=== PATIENT | male | born 1955 | race Caucasian/White ===

== ENCOUNTER 2019-10-19 23:24 | Inpatient (IN) ==
[2019-10-19] MEDS ORDERED: Isovue-370 500 ML BOTTLE IVP ONE (23:46)
[2019-10-20 00:11] LABS: Basophils # 0.1 K/mcL (0.0-0.2); Basophils % 0.6 %; Eosinophils # 0.4 K/mcL (0.0-0.6); Eosinophils % 3.8 %; Hematocrit 42.2 % (37.5-50.1); Hemoglobin 13.7 g/dL (12.9-16.9); Immature Granulocytes % 1.6 % (0-4); Lymphocytes # 2.2 K/mcL (0.6-4.6); Lymphocytes % 22.3 %; Mean Corpuscular HGB Conc 32.5 g/dL (31.6-35.5); Mean Corpuscular Hemoglobin 30.2 pg (28.0-33.3); Mean Corpuscular Volume 93.2 fL (83.0-100.0); Mean Platelet Volume 10.6 fL (9.4-12.4); Monocytes # 1.1 K/mcL (0.0-1.3); Monocytes % 11.3 %; Platelet Count 184 K/mcL (140-400); Red Blood Count 4.53 M/mcL (4.19-5.50); Red Cell Distribution Width 14.4 % (11.5-14.5); Segmented Neutrophils % 60.4 %; White Blood Count 9.9 K/mcL (4.3-11.1)
[2019-10-20 00:26] LABS: BUN/Creatinine Ratio 17 (6-26); Blood Urea Nitrogen 15 mg/dL (8-23); Calcium 9.3 mg/dL (8.6-10.3); Carbon Dioxide 25 mEq/L (23-29); Chloride 103 mEq/L (98-107); Glucose 112 mg/dL (70-105); Osmolality,Calculated 290 (280-300); Potassium 3.9 mEq/L (3.5-5.1); Sodium 139 mEq/L (136-145); eGFR For African Americans > 60 (> 60); eGFR For Non-African Americans > 60 (> 60)
[2019-10-20 00:27] LABS: Troponin I 0.03 ng/mL (< 0.04)
[2019-10-20] MEDS ORDERED: methylPREDNISolone 125 MG/2 ML VIAL IVP ONE (00:27)
[2019-10-20] MEDS ORDERED: Ipratropium/Albuterol Neb 3 ML IH ONE (00:27)
[2019-10-20 02:24] LABS: Adenovirus Not Detected (Not Detect); Coronavirus 229E Not Detected (Not Detect); Coronavirus HKU1 Not Detected (Not Detect)
[2019-10-20 02:25] LABS: Coronavirus NL63 Not Detected (Not Detect); Coronavirus OC43 Not Detected (Not Detect)
[2019-10-20 02:26] LABS: Bordetella Pertussis Not Detected (Not Detect); Chlamydophila pneumoniae Not Detected (Not Detect); Human Metapneumovirus Not Detected (Not Detect); Human Rhinovirus/Enterovirus DETECTED (Not Detect); Influenza A Subtype 2009 H1 Not Detected (Not Detect); Influenza B Not Detected (Not Detect); Mycoplasma pneumoniae Not Detected (Not Detect); Parainfluenza Virus 1 Not Detected (Not Detect); Parainfluenza Virus 2 Not Detected (Not Detect); Parainfluenza Virus 3 Not Detected (Not Detect); Parainfluenza Virus 4 Not Detected (Not Detect); Respiratory Syncytial Virus Not Detected (Not Detect)
[2019-10-20] MEDS ORDERED: Azithromycin 500 MG in 0.9 % Sodium Chloride 250 ML IVPB ONE (03:12)
[2019-10-20] MEDS ORDERED: cefTRIAXone 1,000 MG in Water for inj. (sterile) 10 ML IVP ONE (03:12)
[2019-10-20] MEDS ORDERED: Acetaminophen 325 MG TABLET PO PRN (03:44)
[2019-10-20] MEDS ORDERED: *HR* Promethazine 25 MG/ML VIAL IVP PRN (03:44)
[2019-10-20] MEDS ORDERED: Naloxone 0.4 MG/ML INJ IVP PRN (03:44)
[2019-10-20] MEDS ORDERED: Benzonatate 100 MG CAPSULE PO PRN (03:57)
[2019-10-20] MEDS ORDERED: Ipratropium/Albuterol Neb 3 ML IH PRN (04:01)
[2019-10-20] MEDS: Ipratropium/Albuterol Neb 3 ML IH SCH ×4 (04:34→21:45)
[2019-10-20] MEDS ORDERED: *HR* Labetalol 20 MG/4 ML SYRINGE IVP PRN (04:45)
[2019-10-20] MEDS: *HR* Heparin 5,000 UNIT/ML VIAL SQ SCH ×2 (05:04→18:09)
[2019-10-20] MEDS ORDERED: Insulin DETEMIR 100 UNIT/ML X5UNITS SQ SCH (09:00)
[2019-10-20] MEDS: Nicotine 21 MG PATCH.TD24 TD SCH (09:36)
[2019-10-20] MEDS: MethylPREDNISolone 40 MG/ML VIAL IVP SCH ×2 (09:37→18:09)
[2019-10-20] MEDS: Insulin LISPRO 300 UNITS/3 ML VIAL SQ SCH ×3 (09:40→18:08)
[2019-10-21] MEDS: MethylPREDNISolone 40 MG/ML VIAL IVP SCH ×2 (02:59→08:55)
[2019-10-21] MEDS ORDERED: Azithromycin 500 MG in 0.9 % Sodium Chloride 250 ML IVPB SCH (03:00)
[2019-10-21] MEDS: Ipratropium/Albuterol Neb 3 ML IH SCH ×3 (03:31→15:29)
[2019-10-21 03:49] LABS: BUN/Creatinine Ratio 26 (6-26); Blood Urea Nitrogen 26 mg/dL (8-23); Calcium 8.9 mg/dL (8.6-10.3); Carbon Dioxide 27 mEq/L (23-29); Chloride 102 mEq/L (98-107); Glucose 175 mg/dL (70-105); Magnesium 1.9 mg/dL (1.6-2.6); Osmolality,Calculated 293 (280-300); Phosphorous 3.7 mg/dL (2.7-4.5); Potassium 4.5 mEq/L (3.5-5.1); Sodium 137 mEq/L (136-145); eGFR For African Americans > 60 (> 60); eGFR For Non-African Americans > 60 (> 60)
[2019-10-21 04:10] LABS: Basophils % 0.1 %; Eosinophils % 0.1 %; Hemoglobin 12.9 g/dL (12.9-16.9); Immature Granulocytes % 1.3 % (0-4); Lymphocytes # 1.3 K/mcL (0.6-4.6); Lymphocytes % 9.3 %; Mean Corpuscular HGB Conc 32.3 g/dL (31.6-35.5); Mean Corpuscular Hemoglobin 30.3 pg (28.0-33.3); Mean Corpuscular Volume 93.9 fL (83.0-100.0); Monocytes # 0.8 K/mcL (0.0-1.3); Monocytes % 5.6 %; Platelet Count 208 K/mcL (140-400); Red Blood Count 4.26 M/mcL (4.19-5.50); Red Cell Distribution Width 14.3 % (11.5-14.5); Segmented Neutrophils % 83.6 %; White Blood Count 14.4 K/mcL (4.3-11.1)
[2019-10-21] MEDS: *HR* Heparin 5,000 UNIT/ML VIAL SQ SCH ×2 (05:57→18:29)
[2019-10-21 06:59] VITALS: BP 140/80
[2019-10-21] MEDS: Nicotine 21 MG PATCH.TD24 TD SCH (08:56)
[2019-10-21] MEDS: Insulin LISPRO 300 UNITS/3 ML VIAL SQ SCH (08:56)
== END 2019-10-21 19:01 | disposition home or self-care (01) | DRG 190 ==
LOC: EMEROOARM 23:24 → 3ANU 23:24 → SUATTDRO 10-20 03:44 → 3ANU 10-20 03:54
PROVIDERS: ADMIT Family Medicine; ATTEND Internal Medicine

== ENCOUNTER 2020-08-06 18:20 | Inpatient (IN) ==
[2020-08-06] MEDS ORDERED: Melatonin 3 MG TABLET PO PRN (23:01)
[2020-08-06] MEDS ORDERED: Naloxone 0.4 MG/ML INJ IVP PRN (23:01)
[2020-08-06] MEDS ORDERED: Ondansetron 4 MG/2 ML VIAL IVP PRN (23:01)
[2020-08-06] MEDS ORDERED: Perflutren Lipid Microsphere 1.3 ML in 0.9 % Sodium Chloride 8.7 ML IVP PRN (23:57)
[2020-08-07] MEDS ORDERED: Ipratropium/Albuterol Neb 3 ML IH SCH
[2020-08-07] MEDS ORDERED: D5% in Water 1,000 ML IVC PRN (00:25)
[2020-08-07] MEDS ORDERED: Dextrose Gel 15 GM/37.5 ML TUBE PO PRN ×2 (00:25)
[2020-08-07] MEDS ORDERED: *HR* Dextrose 50 % in Water (Vial) 50 ML VIAL IVP PRN (00:25)
[2020-08-07 01:03] LABS: Basophils # 0.1 K/mcL (0.0-0.2); Eosinophils # 1.1 K/mcL (0.0-0.6); Eosinophils % 11.7 %; Hematocrit 37.5 % (37.5-50.1); Hemoglobin 12.2 g/dL (12.9-16.9); Immature Granulocytes % 0.5 % (0-4); Lymphocytes % 21.3 %; Mean Corpuscular HGB Conc 32.5 g/dL (31.6-35.5); Mean Corpuscular Hemoglobin 29.5 pg (28.0-33.3); Mean Corpuscular Volume 90.8 fL (83.0-100.0); Mean Platelet Volume 10.7 fL (9.4-12.4); Monocytes # 1.2 K/mcL (0.0-1.3); Monocytes % 12.5 %; Platelet Count 233 K/mcL (140-400); Red Blood Count 4.13 M/mcL (4.19-5.50); White Blood Count 9.4 K/mcL (4.3-11.1)
[2020-08-07 01:16] LABS: BUN/Creatinine Ratio 15 (6-26); Blood Urea Nitrogen 18 mg/dL (8-23); Calcium 7.8 mg/dL (8.6-10.3); Carbon Dioxide 29 mEq/L (23-29); Chloride 103 mEq/L (98-107); Glucose 150 mg/dL (70-105); Osmolality,Calculated 291 (280-300); Potassium 3.7 mEq/L (3.5-5.1); Sodium 138 mEq/L (136-145); eGFR For African Americans > 60 (> 60); eGFR For Non-African Americans > 60 (> 60)
[2020-08-07 01:22] LABS: Troponin I 0.04 ng/mL (< 0.04)
[2020-08-07 01:39] LABS: Prothrombin Time 12.1 Seconds (9.4-12.1)
[2020-08-07] MEDS: Ipratropium/Albuterol Neb 3 ML IH SCH ×4 (03:18→20:50)
[2020-08-07] MEDS: *HR* Heparin 5,000 UNIT/ML VIAL SQ SCH ×2 (05:57→16:53)
[2020-08-07] MEDS: Insulin LISPRO 300 UNITS/3 ML VIAL SUBQ SCH ×3 (08:43→16:59)
[2020-08-07] MEDS: Aspirin Enteric Coated 81 MG Tablet PO SCH (08:46)
[2020-08-07] MEDS: Acetaminophen 325 MG TABLET PO PRN (08:59)
[2020-08-07] MEDS ORDERED: Furosemide 40 MG/4 ML VIAL IVP SCH (09:00)
[2020-08-07] MEDS: Budesonide/Formoterol 160/4.5 1 PUFF INH IH SCH ×2 (09:02→20:50)
[2020-08-07 12:06] LABS: VBG Ionized Calcium 1.02 mmol/L (1.15-1.35)
[2020-08-07] MEDS ORDERED: Fluticasone Propionate Nasal 50 MCG/SPRAY BOTTLE NS PRN (12:06)
[2020-08-07 12:24] LABS: Albumin 2.5 g/dL (3.5-5.7); Bilirubin,Direct 0.1 mg/dL (0.0-0.2); Bilirubin,Indirect 0.3 mg/dL (0.0-1.0); Bilirubin,Total 0.4 mg/dL (0.3-1.0); Globulin 2.4 g/dL (2.4-3.5); Total Protein 4.9 g/dL (6.4-8.9)
[2020-08-07] MEDS ORDERED: Calcium Gluconate 1gm/50mL 1 GM/50 ML BAG IVPB ONE (15:23)
[2020-08-07] MEDS: cilostazoL 100 MG TABLET PO SCH (20:04)
[2020-08-08] MEDS ORDERED: *HR* Metoprolol 5 MG/5 ML VIAL IVP ONE (00:08)
[2020-08-08] MEDS: Ipratropium/Albuterol Neb 3 ML IH SCH ×4 (03:30→22:33)
[2020-08-08 05:16] LABS: Basophils # 0.1 K/mcL (0.0-0.2); Basophils % 0.8 %; Eosinophils # 1.1 K/mcL (0.0-0.6); Eosinophils % 11.8 %; Hematocrit 34.8 % (37.5-50.1); Hemoglobin 11.4 g/dL (12.9-16.9); Immature Granulocytes % 0.5 % (0-4); Lymphocytes # 2.1 K/mcL (0.6-4.6); Lymphocytes % 22.4 %; Mean Corpuscular HGB Conc 32.8 g/dL (31.6-35.5); Mean Corpuscular Hemoglobin 29.5 pg (28.0-33.3); Mean Corpuscular Volume 90.2 fL (83.0-100.0); Mean Platelet Volume 10.6 fL (9.4-12.4); Monocytes # 1.5 K/mcL (0.0-1.3); Monocytes % 15.7 %; Neutrophils # 4.6 K/mcL (1.6-8.9); Platelet Count 220 K/mcL (140-400); Red Blood Count 3.86 M/mcL (4.19-5.50); Segmented Neutrophils % 48.8 %; White Blood Count 9.5 K/mcL (4.3-11.1)
[2020-08-08 05:38] LABS: BUN/Creatinine Ratio 18 (6-26); Blood Urea Nitrogen 17 mg/dL (8-23); Calcium 7.8 mg/dL (8.6-10.3); Carbon Dioxide 28 mEq/L (23-29); Chloride 104 mEq/L (98-107); Glucose 101 mg/dL (70-105); Magnesium 1.9 mg/dL (1.6-2.6); Osmolality,Calculated 288 (280-300); Potassium 3.8 mEq/L (3.5-5.1); Sodium 138 mEq/L (136-145); eGFR For African Americans > 60 (> 60); eGFR For Non-African Americans > 60 (> 60)
[2020-08-08] MEDS: *HR* Heparin 5,000 UNIT/ML VIAL SQ SCH ×2 (06:05→17:15)
[2020-08-08] MEDS: Insulin LISPRO 300 UNITS/3 ML VIAL SUBQ SCH ×3 (08:16→16:46)
[2020-08-08] MEDS: Furosemide 40 MG/4 ML VIAL IVP SCH ×2 (08:17→17:18)
[2020-08-08] MEDS: cilostazoL 100 MG TABLET PO SCH ×2 (08:18→20:21)
[2020-08-08] MEDS: Aspirin Enteric Coated 81 MG Tablet PO SCH (08:18)
[2020-08-08] MEDS: Budesonide/Formoterol 160/4.5 1 PUFF INH IH SCH ×2 (08:28→22:33)
[2020-08-08] MEDS ORDERED: NON-FORMULARY MEDICATION 1 EACH EACH (Fluticasone/Umeclidin/Vilanter [Trelegy Ellipta 100- IH SCH (09:00)
[2020-08-09] MEDS: Ipratropium/Albuterol Neb 3 ML IH SCH ×4 (03:46→21:43)
[2020-08-09] MEDS: *HR* Heparin 5,000 UNIT/ML VIAL SQ SCH ×2 (05:01→16:42)
[2020-08-09 06:26] LABS: Basophils # 0.1 K/mcL (0.0-0.2); Basophils % 0.8 %; Eosinophils # 1.3 K/mcL (0.0-0.6); Eosinophils % 13.3 %; Hematocrit 37.1 % (37.5-50.1); Hemoglobin 12.3 g/dL (12.9-16.9); Immature Granulocytes % 0.7 % (0-4); Lymphocytes # 2.4 K/mcL (0.6-4.6); Lymphocytes % 23.7 %; Mean Corpuscular HGB Conc 33.2 g/dL (31.6-35.5); Mean Corpuscular Hemoglobin 29.8 pg (28.0-33.3); Mean Corpuscular Volume 89.8 fL (83.0-100.0); Mean Platelet Volume 11.1 fL (9.4-12.4); Monocytes # 1.4 K/mcL (0.0-1.3); Monocytes % 13.9 %; Neutrophils # 4.8 K/mcL (1.6-8.9); Platelet Count 236 K/mcL (140-400); Red Blood Count 4.13 M/mcL (4.19-5.50); Red Cell Distribution Width 13.7 % (11.5-14.5); Segmented Neutrophils % 47.6 %
[2020-08-09 06:44] LABS: BUN/Creatinine Ratio 19 (6-26); Blood Urea Nitrogen 20 mg/dL (8-23); Carbon Dioxide 31 mEq/L (23-29); Chloride 101 mEq/L (98-107); Glucose 94 mg/dL (70-105); Magnesium 1.8 mg/dL (1.6-2.6); Osmolality,Calculated 288 (280-300); Potassium 3.8 mEq/L (3.5-5.1); Sodium 138 mEq/L (136-145); eGFR For African Americans > 60 (> 60); eGFR For Non-African Americans > 60 (> 60)
[2020-08-09] MEDS: Insulin LISPRO 300 UNITS/3 ML VIAL SUBQ SCH ×3 (07:32→16:39)
[2020-08-09] MEDS: Furosemide 40 MG/4 ML VIAL IVP SCH ×2 (09:33→16:42)
[2020-08-09] MEDS: Aspirin Enteric Coated 81 MG Tablet PO SCH (09:33)
[2020-08-09] MEDS: cilostazoL 100 MG TABLET PO SCH ×2 (09:33→20:19)
[2020-08-09] MEDS: Budesonide/Formoterol 160/4.5 1 PUFF INH IH SCH ×2 (10:47→21:43)
[2020-08-09] MEDS: Magnesium Oxide 400 MG TABLET PO SCH (13:56)
[2020-08-10] MEDS: Ipratropium/Albuterol Neb 3 ML IH SCH ×4 (04:03→22:31)
[2020-08-10 04:45] LABS: BUN/Creatinine Ratio 22 (6-26); Blood Urea Nitrogen 28 mg/dL (8-23); Calcium 8.3 mg/dL (8.6-10.3); Carbon Dioxide 32 mEq/L (23-29); Chloride 100 mEq/L (98-107); Glucose 104 mg/dL (70-105); Osmolality,Calculated 292 (280-300); Potassium 3.8 mEq/L (3.5-5.1); Sodium 138 mEq/L (136-145); eGFR For African Americans > 60 (> 60); eGFR For Non-African Americans 58 (> 60)
[2020-08-10] MEDS: *HR* Heparin 5,000 UNIT/ML VIAL SQ SCH ×2 (06:12→16:39)
[2020-08-10] MEDS: Insulin LISPRO 300 UNITS/3 ML VIAL SUBQ SCH ×3 (07:42→16:39)
[2020-08-10] MEDS: Aspirin Enteric Coated 81 MG Tablet PO SCH (07:47)
[2020-08-10] MEDS: Magnesium Oxide 400 MG TABLET PO SCH (07:47)
[2020-08-10] MEDS: cilostazoL 100 MG TABLET PO SCH ×2 (07:47→20:38)
[2020-08-10] MEDS: Furosemide 40 MG/4 ML VIAL IVP SCH (07:48)
[2020-08-10] MEDS: predniSONE 20 MG TABLET PO SCH (09:48)
[2020-08-10] MEDS: Budesonide/Formoterol 160/4.5 1 PUFF INH IH SCH ×2 (09:57→22:31)
[2020-08-10] MEDS ORDERED: Furosemide 40 MG/4 ML VIAL IVP SCH (21:00)
[2020-08-11] MEDS: Ipratropium/Albuterol Neb 3 ML IH SCH ×4 (04:11→21:27)
[2020-08-11] MEDS: *HR* Heparin 5,000 UNIT/ML VIAL SQ SCH ×2 (05:09→17:08)
[2020-08-11 05:24] LABS: BUN/Creatinine Ratio 25 (6-26); Blood Urea Nitrogen 29 mg/dL (8-23); Calcium 8.6 mg/dL (8.6-10.3); Carbon Dioxide 32 mEq/L (23-29); Chloride 100 mEq/L (98-107); Glucose 117 mg/dL (70-105); Osmolality,Calculated 297 (280-300); Potassium 3.9 mEq/L (3.5-5.1); Sodium 140 mEq/L (136-145); eGFR For African Americans > 60 (> 60); eGFR For Non-African Americans > 60 (> 60)
[2020-08-11] MEDS: Insulin LISPRO 300 UNITS/3 ML VIAL SUBQ SCH ×3 (07:30→15:47)
[2020-08-11] MEDS: cilostazoL 100 MG TABLET PO SCH ×2 (09:32→22:13)
[2020-08-11] MEDS: predniSONE 20 MG TABLET PO SCH (09:32)
[2020-08-11] MEDS: Aspirin Enteric Coated 81 MG Tablet PO SCH (09:32)
[2020-08-11] MEDS: Magnesium Oxide 400 MG TABLET PO SCH (09:33)
[2020-08-11] MEDS: Furosemide 40 MG/4 ML VIAL IVP SCH ×2 (09:34→22:13)
[2020-08-11] MEDS: Budesonide/Formoterol 160/4.5 1 PUFF INH IH SCH ×2 (10:31→21:27)
[2020-08-12] MEDS: Ipratropium/Albuterol Neb 3 ML IH SCH ×4 (03:48→21:52)
[2020-08-12] MEDS: *HR* Heparin 5,000 UNIT/ML VIAL SQ SCH ×2 (05:21→16:59)
[2020-08-12 06:48] LABS: BUN/Creatinine Ratio 30 (6-26); Blood Urea Nitrogen 33 mg/dL (8-23); Calcium 8.1 mg/dL (8.6-10.3); Carbon Dioxide 35 mEq/L (23-29); Chloride 100 mEq/L (98-107); Glucose 110 mg/dL (70-105); Osmolality,Calculated 294 (280-300); Potassium 3.6 mEq/L (3.5-5.1); Sodium 138 mEq/L (136-145); eGFR For African Americans > 60 (> 60); eGFR For Non-African Americans > 60 (> 60)
[2020-08-12] MEDS: predniSONE 20 MG TABLET PO SCH (10:21)
[2020-08-12] MEDS: Insulin LISPRO 300 UNITS/3 ML VIAL SUBQ SCH ×3 (10:22→17:02)
[2020-08-12] MEDS: Magnesium Oxide 400 MG TABLET PO SCH (10:22)
[2020-08-12] MEDS: Aspirin Enteric Coated 81 MG Tablet PO SCH (10:22)
[2020-08-12] MEDS: cilostazoL 100 MG TABLET PO SCH ×2 (10:22→22:27)
[2020-08-12] MEDS: Furosemide 40 MG/4 ML VIAL IVP SCH (10:23)
[2020-08-12] MEDS: Budesonide/Formoterol 160/4.5 1 PUFF INH IH SCH ×2 (10:53→21:52)
[2020-08-12] MEDS: Furosemide 40 MG TABLET PO SCH ×2 (16:59→22:27)
[2020-08-13] MEDS: Ipratropium/Albuterol Neb 3 ML IH SCH ×2 (04:05→10:43)
[2020-08-13 04:46] LABS: Basophils % 0.2 %; Eosinophils # 0.2 K/mcL (0.0-0.6); Eosinophils % 1.5 %; Hematocrit 35.6 % (37.5-50.1); Hemoglobin 11.9 g/dL (12.9-16.9); Immature Granulocytes % 0.8 % (0-4); Lymphocytes # 2.1 K/mcL (0.6-4.6); Lymphocytes % 16.8 %; Mean Corpuscular HGB Conc 33.4 g/dL (31.6-35.5); Mean Corpuscular Volume 89.7 fL (83.0-100.0); Mean Platelet Volume 10.9 fL (9.4-12.4); Monocytes # 1.4 K/mcL (0.0-1.3); Monocytes % 11.6 %; Neutrophils # 8.5 K/mcL (1.6-8.9); Platelet Count 289 K/mcL (140-400); Red Blood Count 3.97 M/mcL (4.19-5.50); Red Cell Distribution Width 13.3 % (11.5-14.5); Segmented Neutrophils % 69.1 %; White Blood Count 12.3 K/mcL (4.3-11.1)
[2020-08-13 05:23] LABS: BUN/Creatinine Ratio 36 (6-26); Blood Urea Nitrogen 47 mg/dL (8-23); Carbon Dioxide 30 mEq/L (23-29); Chloride 100 mEq/L (98-107); Glucose 111 mg/dL (70-105); Osmolality,Calculated 301 (280-300); Potassium 3.8 mEq/L (3.5-5.1); Sodium 139 mEq/L (136-145); eGFR For African Americans > 60 (> 60); eGFR For Non-African Americans 56 (> 60)
[2020-08-13] MEDS: *HR* Heparin 5,000 UNIT/ML VIAL SQ SCH ×2 (05:23→18:21)
[2020-08-13] MEDS: Insulin LISPRO 300 UNITS/3 ML VIAL SUBQ SCH ×3 (10:01→18:19)
[2020-08-13] MEDS: Aspirin Enteric Coated 81 MG Tablet PO SCH (10:23)
[2020-08-13] MEDS: predniSONE 20 MG TABLET PO SCH (10:23)
[2020-08-13] MEDS: Furosemide 40 MG TABLET PO SCH ×2 (10:23→18:21)
[2020-08-13] MEDS: cilostazoL 100 MG TABLET PO SCH ×2 (10:23→21:50)
[2020-08-13] MEDS: Magnesium Oxide 400 MG TABLET PO SCH (10:23)
[2020-08-13] MEDS: Budesonide/Formoterol 160/4.5 1 PUFF INH IH SCH ×2 (10:43→22:31)
[2020-08-13] MEDS ORDERED: Ipratropium/Albuterol Neb 3 ML IH PRN (11:01)
[2020-08-14] MEDS: *HR* Heparin 5,000 UNIT/ML VIAL SQ SCH ×2 (05:24→19:03)
[2020-08-14] MEDS ORDERED: Regadenoson 0.4 MG/5 ML SYRINGE IVP ONE (06:10)
[2020-08-14] MEDS: Budesonide/Formoterol 160/4.5 1 PUFF INH IH SCH ×2 (09:56→22:27)
[2020-08-14] MEDS: cilostazoL 100 MG TABLET PO SCH ×2 (11:41→20:58)
[2020-08-14] MEDS: Aspirin Enteric Coated 81 MG Tablet PO SCH (11:41)
[2020-08-14] MEDS: predniSONE 20 MG TABLET PO SCH (11:41)
[2020-08-14] MEDS: Magnesium Oxide 400 MG TABLET PO SCH (11:41)
[2020-08-14] MEDS: Furosemide 40 MG TABLET PO SCH ×2 (11:42→19:03)
[2020-08-14] MEDS: Insulin LISPRO 300 UNITS/3 ML VIAL SUBQ SCH ×3 (11:42→19:03)
[2020-08-14] MEDS: Acetaminophen 325 MG TABLET PO PRN (20:58)
[2020-08-15] MEDS: *HR* Heparin 5,000 UNIT/ML VIAL SQ SCH ×2 (06:30→17:20)
[2020-08-15] MEDS: Budesonide/Formoterol 160/4.5 1 PUFF INH IH SCH ×2 (07:30→19:45)
[2020-08-15] MEDS: Insulin LISPRO 300 UNITS/3 ML VIAL SUBQ SCH ×3 (07:48→17:19)
[2020-08-15] MEDS: Magnesium Oxide 400 MG TABLET PO SCH (08:39)
[2020-08-15] MEDS: cilostazoL 100 MG TABLET PO SCH ×2 (08:39→20:22)
[2020-08-15] MEDS: Furosemide 40 MG TABLET PO SCH ×2 (08:39→17:20)
[2020-08-15] MEDS: Aspirin Enteric Coated 81 MG Tablet PO SCH (08:39)
[2020-08-16] MEDS: *HR* Heparin 5,000 UNIT/ML VIAL SQ SCH ×2 (05:34→17:00)
[2020-08-16] MEDS: cilostazoL 100 MG TABLET PO SCH ×2 (07:42→20:39)
[2020-08-16] MEDS: Aspirin Enteric Coated 81 MG Tablet PO SCH (07:42)
[2020-08-16] MEDS: Furosemide 40 MG TABLET PO SCH ×2 (07:42→17:00)
[2020-08-16] MEDS: Magnesium Oxide 400 MG TABLET PO SCH (07:42)
[2020-08-16] MEDS: Insulin LISPRO 300 UNITS/3 ML VIAL SUBQ SCH ×3 (07:43→16:09)
[2020-08-16] MEDS: Budesonide/Formoterol 160/4.5 1 PUFF INH IH SCH ×2 (11:08→22:14)
[2020-08-17] MEDS: *HR* Heparin 5,000 UNIT/ML VIAL SQ SCH ×2 (05:21→17:46)
[2020-08-17] MEDS: Budesonide/Formoterol 160/4.5 1 PUFF INH IH SCH ×2 (07:25→19:56)
[2020-08-17] MEDS: Insulin LISPRO 300 UNITS/3 ML VIAL SUBQ SCH ×3 (07:58→17:41)
[2020-08-17] MEDS: Magnesium Oxide 400 MG TABLET PO SCH (08:04)
[2020-08-17] MEDS: Aspirin Enteric Coated 81 MG Tablet PO SCH (08:04)
[2020-08-17] MEDS: cilostazoL 100 MG TABLET PO SCH ×2 (08:04→20:15)
[2020-08-17] MEDS: Furosemide 40 MG TABLET PO SCH ×2 (08:04→17:46)
[2020-08-17 10:05] LABS: BUN/Creatinine Ratio 28 (6-26); Blood Urea Nitrogen 33 mg/dL (8-23); Calcium 8.8 mg/dL (8.6-10.3); Carbon Dioxide 31 mEq/L (23-29); Chloride 99 mEq/L (98-107); Glucose 154 mg/dL (70-105); Osmolality,Calculated 294 (280-300); Potassium 3.6 mEq/L (3.5-5.1); Sodium 137 mEq/L (136-145); eGFR For African Americans > 60 (> 60); eGFR For Non-African Americans > 60 (> 60)
[2020-08-17 10:34] LABS: Hematocrit 41.7 % (37.5-50.1); Mean Corpuscular HGB Conc 32.4 g/dL (31.6-35.5); Mean Corpuscular Hemoglobin 29.3 pg (28.0-33.3); Mean Corpuscular Volume 90.7 fL (83.0-100.0); Mean Platelet Volume 10.4 fL (9.4-12.4); Platelet Count 308 K/mcL (140-400); Red Cell Distribution Width 13.3 % (11.5-14.5); White Blood Count 12.4 K/mcL (4.3-11.1)
[2020-08-17 10:38] LABS: Hemoglobin 13.5 g/dL (12.9-16.9)
[2020-08-17 11:30] LABS: Eosinophils # 0.7 K/mcL (0.0-0.6); Lymphocytes # 3.2 K/mcL (0.6-4.6); Monocytes # 1.1 K/mcL (0.0-1.3); Neutrophils # 7.1 K/mcL (1.6-8.9); Platelet Estimate Normal (Normal); Reactive Lymphocytes Present (Not Present)
[2020-08-18] MEDS: *HR* Heparin 5,000 UNIT/ML VIAL SQ SCH ×2 (05:34→17:44)
[2020-08-18] MEDS: Budesonide/Formoterol 160/4.5 1 PUFF INH IH SCH ×2 (07:32→20:03)
[2020-08-18] MEDS: Furosemide 40 MG TABLET PO SCH ×2 (08:25→17:44)
[2020-08-18] MEDS: Magnesium Oxide 400 MG TABLET PO SCH (08:25)
[2020-08-18] MEDS: Aspirin Enteric Coated 81 MG Tablet PO SCH (08:25)
[2020-08-18] MEDS: cilostazoL 100 MG TABLET PO SCH ×2 (08:26→20:36)
[2020-08-18] MEDS: Insulin LISPRO 300 UNITS/3 ML VIAL SUBQ SCH ×3 (08:26→17:32)
[2020-08-19] MEDS: *HR* Heparin 5,000 UNIT/ML VIAL SQ SCH ×2 (07:05→18:43)
[2020-08-19] MEDS: Budesonide/Formoterol 160/4.5 1 PUFF INH IH SCH ×2 (07:49→20:35)
[2020-08-19] MEDS: Insulin LISPRO 300 UNITS/3 ML VIAL SUBQ SCH ×3 (08:42→18:37)
[2020-08-19 09:53] LABS: Basophils # 0.1 K/mcL (0.0-0.2); Basophils % 1.1 %; Eosinophils # 0.6 K/mcL (0.0-0.6); Hematocrit 40.3 % (37.5-50.1); Immature Granulocytes % 4.1 % (0-4); Lymphocytes # 2.6 K/mcL (0.6-4.6); Lymphocytes % 22.3 %; Mean Corpuscular HGB Conc 32.3 g/dL (31.6-35.5); Mean Corpuscular Hemoglobin 29.1 pg (28.0-33.3); Mean Corpuscular Volume 90.4 fL (83.0-100.0); Monocytes # 1.2 K/mcL (0.0-1.3); Monocytes % 9.8 %; Neutrophils # 6.8 K/mcL (1.6-8.9); Platelet Count 312 K/mcL (140-400); Red Blood Count 4.46 M/mcL (4.19-5.50); Red Cell Distribution Width 13.5 % (11.5-14.5); Segmented Neutrophils % 57.7 %; White Blood Count 11.8 K/mcL (4.3-11.1)
[2020-08-19] MEDS: cilostazoL 100 MG TABLET PO SCH ×2 (10:01→21:37)
[2020-08-19] MEDS: Furosemide 40 MG TABLET PO SCH (10:01)
[2020-08-19] MEDS: Magnesium Oxide 400 MG TABLET PO SCH (10:01)
[2020-08-19] MEDS: Aspirin Enteric Coated 81 MG Tablet PO SCH (10:02)
[2020-08-19 10:13] LABS: BUN/Creatinine Ratio 27 (6-26); Blood Urea Nitrogen 36 mg/dL (8-23); Calcium 8.5 mg/dL (8.6-10.3); Carbon Dioxide 29 mEq/L (23-29); Chloride 101 mEq/L (98-107); Glucose 210 mg/dL (70-105); Osmolality,Calculated 299 (280-300); Potassium 3.6 mEq/L (3.5-5.1); Sodium 137 mEq/L (136-145); eGFR For African Americans > 60 (> 60); eGFR For Non-African Americans 53 (> 60)
[2020-08-19] MEDS: Furosemide 20 MG TABLET PO SCH (18:43)
[2020-08-20 05:48] LABS: BUN/Creatinine Ratio 29 (6-26); Blood Urea Nitrogen 36 mg/dL (8-23); Calcium 8.3 mg/dL (8.6-10.3); Carbon Dioxide 29 mEq/L (23-29); Chloride 103 mEq/L (98-107); Glucose 103 mg/dL (70-105); Osmolality,Calculated 295 (280-300); Potassium 3.6 mEq/L (3.5-5.1); Sodium 138 mEq/L (136-145); eGFR For African Americans > 60 (> 60); eGFR For Non-African Americans 57 (> 60)
[2020-08-20] MEDS: *HR* Heparin 5,000 UNIT/ML VIAL SQ SCH ×2 (06:32→17:34)
[2020-08-20] MEDS: Budesonide/Formoterol 160/4.5 1 PUFF INH IH SCH ×2 (08:05→20:17)
[2020-08-20] MEDS: Insulin LISPRO 300 UNITS/3 ML VIAL SUBQ SCH ×3 (08:07→17:40)
[2020-08-20] MEDS: Magnesium Oxide 400 MG TABLET PO SCH (09:01)
[2020-08-20] MEDS: Aspirin Enteric Coated 81 MG Tablet PO SCH (09:01)
[2020-08-20] MEDS: cilostazoL 100 MG TABLET PO SCH ×2 (09:01→21:25)
[2020-08-20] MEDS: Furosemide 20 MG TABLET PO SCH ×2 (09:02→17:40)
[2020-08-21] MEDS: *HR* Heparin 5,000 UNIT/ML VIAL SQ SCH (05:50)
[2020-08-21] MEDS: Budesonide/Formoterol 160/4.5 1 PUFF INH IH SCH (07:32)
[2020-08-21] MEDS: Insulin LISPRO 300 UNITS/3 ML VIAL SUBQ SCH ×2 (09:01→12:00)
[2020-08-21] MEDS: Magnesium Oxide 400 MG TABLET PO SCH (09:02)
[2020-08-21] MEDS: Furosemide 20 MG TABLET PO SCH (09:02)
[2020-08-21] MEDS: cilostazoL 100 MG TABLET PO SCH (09:02)
[2020-08-21] MEDS: Aspirin Enteric Coated 81 MG Tablet PO SCH (09:02)
[2020-08-21 11:35] VITALS: BP 170/62
[2020-08-21 13:27] LABS: Adenovirus Not Detected (Not Detect); Bordetella Pertussis Not Detected (Not Detect); Chlamydophila pneumoniae Not Detected (Not Detect); Coronavirus 229E Not Detected (Not Detect); Coronavirus HKU1 Not Detected (Not Detect); Coronavirus NL63 Not Detected (Not Detect); Coronavirus OC43 Not Detected (Not Detect); Human Metapneumovirus Not Detected (Not Detect); Human Rhinovirus/Enterovirus Not Detected (Not Detect); Influenza A Subtype 2009 H1 Not Detected (Not Detect); Influenza B Not Detected (Not Detect); Mycoplasma pneumoniae Not Detected (Not Detect); Parainfluenza Virus 1 Not Detected (Not Detect); Parainfluenza Virus 2 Not Detected (Not Detect); Parainfluenza Virus 3 Not Detected (Not Detect); Parainfluenza Virus 4 Not Detected (Not Detect); Respiratory Syncytial Virus Not Detected (Not Detect); SARS-CoV-2 Not Detected (Not Detect)
== END 2020-08-21 16:41 | disposition other institution (70) | DRG 292 ==
LOC: 3ANU → SUATTDRO 20:20
PROVIDERS: ADMIT Internal Medicine; ATTEND Internal Medicine

== ENCOUNTER 2020-08-24 12:50 | Inpatient (IN) ==
[2020-08-24] MEDS ORDERED: Naloxone 0.4 MG/ML INJ IVP PRN (16:05)
[2020-08-24] MEDS ORDERED: Ondansetron 4 MG/2 ML VIAL IVP PRN (16:05)
[2020-08-24] MEDS ORDERED: *HR* Dextrose 50 % in Water (Vial) 50 ML VIAL IVP PRN (16:09)
[2020-08-24] MEDS ORDERED: Dextrose Gel 15 GM/37.5 ML TUBE PO PRN ×2 (16:09)
[2020-08-24] MEDS ORDERED: D5% in Water 1,000 ML IVC PRN (16:09)
[2020-08-24 16:55] LABS: Calcium 8.5 mg/dL (8.6-10.3); Potassium 3.9 mEq/L (3.5-5.1)
[2020-08-24] MEDS: Insulin LISPRO 300 UNITS/3 ML VIAL SUBQ SCH ×2 (17:16→21:21)
[2020-08-24] MEDS ORDERED: DilTIAZem 50 MG in 0.9 % Sodium Chloride 40 ML IVC SCH (17:45)
[2020-08-24] MEDS: Budesonide/Formoterol 160/4.5 1 PUFF INH IH SCH (20:31)
[2020-08-24] MEDS: cilostazoL 100 MG TABLET PO SCH (21:34)
[2020-08-24] MEDS: Apixaban 5 MG TABLET PO SCH (21:35)
[2020-08-25 06:03] LABS: Basophils # 0.1 K/mcL (0.0-0.2); Basophils % 0.7 %; Eosinophils # 0.6 K/mcL (0.0-0.6); Eosinophils % 4.4 %; Hematocrit 34.9 % (37.5-50.1); Immature Granulocytes % 1.7 % (0-4); Lymphocytes # 2.7 K/mcL (0.6-4.6); Lymphocytes % 19.6 %; Mean Corpuscular HGB Conc 32.4 g/dL (31.6-35.5); Mean Corpuscular Hemoglobin 29.1 pg (28.0-33.3); Mean Corpuscular Volume 89.9 fL (83.0-100.0); Mean Platelet Volume 10.9 fL (9.4-12.4); Monocytes # 2.4 K/mcL (0.0-1.3); Monocytes % 17.4 %; Neutrophils # 7.8 K/mcL (1.6-8.9); Platelet Count 259 K/mcL (140-400); Red Blood Count 3.88 M/mcL (4.19-5.50); Red Cell Distribution Width 13.5 % (11.5-14.5); Segmented Neutrophils % 56.2 %; White Blood Count 13.8 K/mcL (4.3-11.1)
[2020-08-25 06:04] LABS: Hemoglobin 11.3 g/dL (12.9-16.9)
[2020-08-25 06:19] LABS: Calcium 8.5 mg/dL (8.6-10.3); Potassium 3.7 mEq/L (3.5-5.1)
[2020-08-25] MEDS: Insulin LISPRO 300 UNITS/3 ML VIAL SUBQ SCH ×4 (08:28→21:04)
[2020-08-25] MEDS: Metoprolol XL (24 HR) Succ 50 MG TAB.ER.24H PO SCH ×2 (08:34→21:03)
[2020-08-25] MEDS: Apixaban 5 MG TABLET PO SCH ×2 (08:34→21:03)
[2020-08-25] MEDS: cilostazoL 100 MG TABLET PO SCH (08:34)
[2020-08-25] MEDS: Aspirin 81 MG TAB.CHEW PO SCH (08:34)
[2020-08-25] MEDS: Budesonide/Formoterol 160/4.5 1 PUFF INH IH SCH ×2 (09:39→20:33)
[2020-08-25] MEDS: Tiotropium 10 INH DOSE IH SCH (09:40)
[2020-08-25] MEDS: Triamcinolone Acet 0.1% CRM 15 GM TUBE TP SCH ×3 (11:38→21:04)
[2020-08-25] MEDS: Fluticasone Propionate Nasal 50 MCG/SPRAY BOTTLE NS SCH (11:38)
[2020-08-26 06:50] VITALS: BP 130/74
[2020-08-26 07:13] LABS: BUN/Creatinine Ratio 24 (6-26); Blood Urea Nitrogen 29 mg/dL (8-23); Calcium 8.6 mg/dL (8.6-10.3); Carbon Dioxide 28 mEq/L (23-29); Chloride 101 mEq/L (98-107); Glucose 108 mg/dL (70-105); Osmolality,Calculated 286 (280-300); Potassium 3.8 mEq/L (3.5-5.1); Sodium 135 mEq/L (136-145); eGFR For African Americans > 60 (> 60); eGFR For Non-African Americans > 60 (> 60)
[2020-08-26] MEDS: Budesonide/Formoterol 160/4.5 1 PUFF INH IH SCH (07:40)
[2020-08-26] MEDS: Tiotropium 10 INH DOSE IH SCH (07:41)
[2020-08-26] MEDS: Metoprolol XL (24 HR) Succ 50 MG TAB.ER.24H PO SCH (08:12)
[2020-08-26] MEDS: Apixaban 5 MG TABLET PO SCH (08:12)
[2020-08-26] MEDS: Insulin LISPRO 300 UNITS/3 ML VIAL SUBQ SCH (08:13)
[2020-08-26] MEDS: Aspirin 81 MG TAB.CHEW PO SCH (08:13)
[2020-08-26] MEDS: Fluticasone Propionate Nasal 50 MCG/SPRAY BOTTLE NS SCH (08:13)
[2020-08-26] MEDS: Triamcinolone Acet 0.1% CRM 15 GM TUBE TP SCH (08:13)
[2020-08-26] MEDS ORDERED: Isosorbide MONOnitrate (24 HR) 30 MG TAB.ER.24H PO SCH (09:00)
[2020-08-26] MEDS ORDERED: Furosemide 40 MG TABLET PO SCH (09:00)
== END 2020-08-26 11:30 | disposition home or self-care (01) | DRG 309 ==
LOC: 2ANU
PROVIDERS: ADMIT Internal Medicine; ATTEND Internal Medicine

== ENCOUNTER 2021-12-16 16:48 | Inpatient (IN) ==
[2021-12-16 19:09] LABS: Mean Platelet Volume 9.7 fL (9.4-12.4)
[2021-12-16 19:11] LABS: Basophils % 0.3 %; Eosinophils # 0.9 K/mcL (0.0-0.6); Eosinophils % 7.4 %; Hematocrit 18.9 % (37.5-50.1); Immature Granulocytes % 0.6 % (0-4); Lymphocytes # 2.5 K/mcL (0.6-4.6); Lymphocytes % 22.1 %; Mean Corpuscular HGB Conc 30.7 g/dL (31.6-35.5); Mean Corpuscular Hemoglobin 28.4 pg (28.0-33.3); Mean Corpuscular Volume 92.6 fL (83.0-100.0); Monocytes # 1.2 K/mcL (0.0-1.3); Monocytes % 10.7 %; Platelet Count 316 K/mcL (140-400); Red Blood Count 2.04 M/mcL (4.19-5.50); Red Cell Distribution Width 17.5 % (11.5-14.5); Segmented Neutrophils % 58.9 %; White Blood Count 11.5 K/mcL (4.3-11.1)
[2021-12-16 19:23] LABS: INR 1.3; Prothrombin Time 14.5 Seconds (9.4-12.1)
[2021-12-16 19:26] LABS: Activated Partial Thrombo Time 32.2 Seconds (26.0-36.0)
[2021-12-16 19:27] LABS: Neutrophils # 6.8 K/mcL (1.6-8.9)
[2021-12-16 19:29] LABS: Hemoglobin 5.8 g/dL (12.9-16.9)
[2021-12-16 19:30] LABS: Anisocytosis 1+ (Not Present); Hypochromasia Present (Not Present); Microcytosis Present (Not Present); Ovalocytes 1+ (Not Present); Platelet Estimate Normal (Normal); Poikilocytosis 1+ (Not Present); Polychromasia 1+ (Not Present); Stomatocytes 1+ (Not Present)
[2021-12-16 19:38] LABS: Albumin 3.8 g/dL (3.5-5.7); Albumin/Globulin Ratio 1.5 (1.1-2.2); Bilirubin,Direct 0.1 mg/dL (0.0-0.2); Bilirubin,Indirect 0.5 mg/dL (0.0-1.0); Bilirubin,Total 0.6 mg/dL (0.3-1.0); Calcium 9.2 mg/dL (8.6-10.3); Globulin 2.5 g/dL (2.4-3.5); Potassium 4.2 mEq/L (3.5-5.1); Total Protein 6.3 g/dL (6.4-8.9)
[2021-12-16] MEDS: 0.9 % Sodium Chloride 500 ML ONE ×2 (20:50→21:00)
[2021-12-16] MEDS ORDERED: 0.9 % Sodium Chloride 500 ML IV ONE (20:50)
[2021-12-16] MEDS ORDERED: Pantoprazole 80 MG in 0.9 % Sodium Chloride 50 ML IVPB ONE (21:15)
[2021-12-16] MEDS ORDERED: Ondansetron ODT 4 MG TAB.RAPDIS SL PRN (22:35)
[2021-12-16] MEDS ORDERED: Naloxone 0.4 MG/ML INJ IVP PRN (22:35)
[2021-12-16] MEDS ORDERED: Melatonin 3 MG TABLET PO PRN (22:35)
[2021-12-16] MEDS ORDERED: Iopamidol - 370 500 ML MLS IVP ONE (23:29)
[2021-12-17] MEDS ORDERED: 0.9 % Sodium Chloride 250 ML ONE (00:02)
[2021-12-17] MEDS ORDERED: Dextrose Gel 15 GM/37.5 ML TUBE PO PRN ×2 (00:23)
[2021-12-17] MEDS ORDERED: D5% in Water 1,000 ML IVC PRN (00:23)
[2021-12-17] MEDS ORDERED: *HR* Dextrose 50 % in Water (Syg) 50 ML SYRINGE IVP PRN (00:23)
[2021-12-17] MEDS ORDERED: Ipratropium/Albuterol Neb 3 ML IH PRN (00:25)
[2021-12-17] MEDS: Insulin LISPRO 300 UNITS/3 ML VIAL SUBQ SCH ×3 (04:38→18:08)
[2021-12-17 05:09] LABS: Basophils # 0.1 K/mcL (0.0-0.2); Basophils % 0.5 %; Eosinophils # 0.8 K/mcL (0.0-0.6); Eosinophils % 7.3 %; Hematocrit 22.9 % (37.5-50.1); Hemoglobin 7.2 g/dL (12.9-16.9); Immature Granulocytes % 0.6 % (0-4); Lymphocytes # 2.4 K/mcL (0.6-4.6); Lymphocytes % 22.6 %; Mean Corpuscular HGB Conc 31.4 g/dL (31.6-35.5); Mean Corpuscular Hemoglobin 28.1 pg (28.0-33.3); Mean Corpuscular Volume 89.5 fL (83.0-100.0); Mean Platelet Volume 9.5 fL (9.4-12.4); Monocytes # 1.3 K/mcL (0.0-1.3); Monocytes % 12.1 %; Neutrophils # 6.1 K/mcL (1.6-8.9); Platelet Count 281 K/mcL (140-400); Red Blood Count 2.56 M/mcL (4.19-5.50); Red Cell Distribution Width 16.4 % (11.5-14.5); Segmented Neutrophils % 56.9 %; White Blood Count 10.7 K/mcL (4.3-11.1)
[2021-12-17 05:12] LABS: Alanine Aminotransferase 17 Units/L (7-52); Albumin 3.2 g/dL (3.5-5.7); Albumin/Globulin Ratio 1.5 (1.1-2.2); Alkaline Phosphatase 41 Units/L (34-104); Aspartate Amino Transferase 14 Units/L (13-39); BUN/Creatinine Ratio 23 (6-26); Bilirubin,Total 1.8 mg/dL (0.3-1.0); Blood Urea Nitrogen 19 mg/dL (8-23); Calcium 8.5 mg/dL (8.6-10.3); Carbon Dioxide 25 mEq/L (23-29); Chloride 104 mEq/L (98-107); Globulin 2.1 g/dL (2.4-3.5); Glucose 89 mg/dL (70-105); Magnesium 1.8 mg/dL (1.6-2.6); Osmolality,Calculated 286 (280-300); Phosphorous 4.1 mg/dL (2.7-4.5); Potassium 3.9 mEq/L (3.5-5.1); Sodium 137 mEq/L (136-145); Total Protein 5.3 g/dL (6.4-8.9)
[2021-12-17 05:13] LABS: INR 1.3
[2021-12-17] MEDS: Budesonide/Formoterol 160/4.5 1 PUFF INH IH SCH ×2 (07:43→20:22)
[2021-12-17] MEDS: Pantoprazole 40 MG VIAL IVP SCH ×2 (10:18→21:52)
[2021-12-17 10:32] LABS: Hematocrit 23.1 % (37.5-50.1); Hemoglobin 7.4 g/dL (12.9-16.9)
[2021-12-17] MEDS ORDERED: *HR* Propofol 200 MG/20 ML VIAL IVP ONE (11:36)
[2021-12-17] MEDS ORDERED: Lidocaine -MPF 2% 5 ML VIAL ONE (11:36)
[2021-12-17] MEDS: Acetaminophen 325 MG TABLET PO SCH (15:48)
[2021-12-17] MEDS ORDERED: SODIUM CHLORIDE/NAHCO3/KCL/PEG 4,000 ML SOLN.RECON PO ONE (17:00)
[2021-12-18] MEDS: Insulin LISPRO 300 UNITS/3 ML VIAL SUBQ SCH ×4 (01:19→17:51)
[2021-12-18 02:48] LABS: BUN/Creatinine Ratio 19 (6-26); Blood Urea Nitrogen 17 mg/dL (8-23); Calcium 8.5 mg/dL (8.6-10.3); Carbon Dioxide 19 mEq/L (23-29); Chloride 105 mEq/L (98-107); Glucose 94 mg/dL (70-105); Osmolality,Calculated 285 (280-300); Potassium 4.4 mEq/L (3.5-5.1); Sodium 137 mEq/L (136-145)
[2021-12-18 03:59] LABS: Basophils # 0.1 K/mcL (0.0-0.2); Basophils % 0.5 %; Eosinophils # 0.7 K/mcL (0.0-0.6); Eosinophils % 5.9 %; Hemoglobin 7.5 g/dL (12.9-16.9); Immature Granulocytes % 0.4 % (0-4); Lymphocytes # 1.9 K/mcL (0.6-4.6); Lymphocytes % 16.8 %; Mean Corpuscular HGB Conc 31.3 g/dL (31.6-35.5); Mean Corpuscular Hemoglobin 28.5 pg (28.0-33.3); Mean Corpuscular Volume 91.3 fL (83.0-100.0); Mean Platelet Volume 9.6 fL (9.4-12.4); Monocytes # 1.4 K/mcL (0.0-1.3); Monocytes % 12.2 %; Neutrophils # 7.1 K/mcL (1.6-8.9); Platelet Count 289 K/mcL (140-400); Red Blood Count 2.63 M/mcL (4.19-5.50); Red Cell Distribution Width 16.7 % (11.5-14.5); Segmented Neutrophils % 64.2 %; White Blood Count 11.1 K/mcL (4.3-11.1)
[2021-12-18] MEDS: Acetaminophen 325 MG TABLET PO SCH ×2 (04:19→15:34)
[2021-12-18] MEDS ORDERED: Lidocaine -MPF 2% 5 ML VIAL ONE (08:26)
[2021-12-18] MEDS ORDERED: NON-FORMULARY MEDICATION 1 EACH EACH (Fluticasone/Umeclidin/Vilanter [Trelegy Ellipta 100- IH SCH (09:00)
[2021-12-18] MEDS: Budesonide/Formoterol 160/4.5 1 PUFF INH IH SCH ×2 (09:39→19:48)
[2021-12-18] MEDS: Tiotropium 10 INH DOSE IH SCH (09:40)
[2021-12-18] MEDS: Furosemide 40 MG TABLET PO SCH (10:09)
[2021-12-18] MEDS: Pantoprazole 40 MG VIAL IVP SCH ×2 (10:09→20:12)
[2021-12-18] MEDS: Loratadine 10 MG TABLET PO SCH (10:09)
[2021-12-18 14:31] LABS: Hematocrit 24.8 % (37.5-50.1); Hemoglobin 7.8 g/dL (12.9-16.9)
[2021-12-18] MEDS ORDERED: SODIUM CHLORIDE/NAHCO3/KCL/PEG 4,000 ML SOLN.RECON PO ONE (19:18)
[2021-12-19] MEDS: Insulin LISPRO 300 UNITS/3 ML VIAL SUBQ SCH ×4 (00:26→17:09)
[2021-12-19] MEDS: Acetaminophen 325 MG TABLET PO SCH ×2 (00:26→17:09)
[2021-12-19 05:53] LABS: Basophils % 0.3 %; Eosinophils # 0.6 K/mcL (0.0-0.6); Eosinophils % 5.3 %; Hematocrit 25.5 % (37.5-50.1); Immature Granulocytes % 0.4 % (0-4); Lymphocytes # 1.8 K/mcL (0.6-4.6); Lymphocytes % 17.2 %; Mean Corpuscular HGB Conc 31.4 g/dL (31.6-35.5); Mean Corpuscular Hemoglobin 27.9 pg (28.0-33.3); Mean Corpuscular Volume 88.9 fL (83.0-100.0); Mean Platelet Volume 9.4 fL (9.4-12.4); Monocytes # 1.4 K/mcL (0.0-1.3); Neutrophils # 6.9 K/mcL (1.6-8.9); Platelet Count 287 K/mcL (140-400); Red Blood Count 2.87 M/mcL (4.19-5.50); Red Cell Distribution Width 16.3 % (11.5-14.5); Segmented Neutrophils % 63.8 %; White Blood Count 10.7 K/mcL (4.3-11.1)
[2021-12-19 06:13] LABS: BUN/Creatinine Ratio 16 (6-26); Blood Urea Nitrogen 14 mg/dL (8-23); Calcium 8.7 mg/dL (8.6-10.3); Carbon Dioxide 26 mEq/L (23-29); Chloride 103 mEq/L (98-107); Glucose 107 mg/dL (70-105); Osmolality,Calculated 283 (280-300); Potassium 3.8 mEq/L (3.5-5.1); Sodium 136 mEq/L (136-145)
[2021-12-19] MEDS: Budesonide/Formoterol 160/4.5 1 PUFF INH IH SCH ×2 (07:18→19:51)
[2021-12-19] MEDS: Tiotropium 10 INH DOSE IH SCH (07:19)
[2021-12-19] MEDS ORDERED: Simethicone 40 MG/0.6 ML MLS ONE (08:53)
[2021-12-19] MEDS ORDERED: Lidocaine -MPF 2% 5 ML VIAL ONE (09:03)
[2021-12-19] MEDS: Pantoprazole 40 MG VIAL IVP SCH ×2 (10:42→20:59)
[2021-12-19] MEDS: Aspirin 81 MG TAB.CHEW PO SCH (10:42)
[2021-12-19] MEDS: Loratadine 10 MG TABLET PO SCH (10:42)
[2021-12-19] MEDS: Furosemide 40 MG TABLET PO SCH (10:42)
[2021-12-19] MEDS: Apixaban 2.5 MG TABLET PO SCH (21:00)
[2021-12-20] MEDS: Insulin LISPRO 300 UNITS/3 ML VIAL SUBQ SCH ×3 (00:45→11:46)
[2021-12-20] MEDS: Acetaminophen 325 MG TABLET PO SCH ×2 (03:21→14:33)
[2021-12-20 05:25] LABS: Hemoglobin 7.5 g/dL (12.9-16.9)
[2021-12-20] MEDS: Budesonide/Formoterol 160/4.5 1 PUFF INH IH SCH (07:30)
[2021-12-20] MEDS: Tiotropium 10 INH DOSE IH SCH (07:30)
[2021-12-20] MEDS: Furosemide 40 MG TABLET PO SCH (08:35)
[2021-12-20] MEDS: Apixaban 2.5 MG TABLET PO SCH (08:35)
[2021-12-20] MEDS: Loratadine 10 MG TABLET PO SCH (08:35)
[2021-12-20] MEDS: Aspirin 81 MG TAB.CHEW PO SCH (08:35)
[2021-12-20] MEDS: Pantoprazole 40 MG VIAL IVP SCH (08:44)
[2021-12-20 11:03] VITALS: PULSE 78; TEMP 98.1; O2SAT 94
[2021-12-20 14:51] VITALS: BP 108/68
== END 2021-12-20 17:38 | DRG 812 ==
LOC: 2ANU 16:48 → EMEROOARM 16:48 → 2ANU 22:35 → SUATTDRO 22:35
PROVIDERS: ADMIT Student in an Organized Health Care Education/Training Program; ATTEND Family Medicine